=== PATIENT | female | born 1955 ===

== ENCOUNTER 2021-05-01 09:21 | Outpatient (CLI) | payer OTHER ==
[~2021-05-01 09:21] MED LIST: METFORMIN HCL500 MG
== END 2021-05-01 09:38 | disposition home or self-care (01) ==
LOC: RAD 09:21
PROVIDERS: ATTEND Urology
DX: N20.0 Calculus of kidney (principal)

== ENCOUNTER 2021-05-07 12:35 | Outpatient (CLI) | payer OTHER | END 2021-05-07 12:49 | disposition home or self-care (01) | LOC: TOM 12:35 | PROVIDERS: ATTEND Urology | DX: N20.0 Calculus of kidney (principal) ==